=== PATIENT | male | born 1985 | race Caucasian/White ===

== ENCOUNTER 2017-11-29 07:36 | Emergency (ER) | payer BC ==
[2017-11-29] MEDS ORDERED: Acetaminophen 325 MG Tab PO ONE (08:13)
[2017-11-29] MEDS ORDERED: Ketorolac 30 MG/ML SDV IVPUSH SCH (08:15)
[2017-11-29] MEDS ORDERED: Dextrose 5%-0.9% NaCl 1,000 ML IV SCH (08:15)
--- NOTE | 2017-11-29 08:21 | EDM.PDOC ---
ED HPI GENERAL MEDICAL PROBLEM - General Chief Complaint: Fever Stated Complaint: HEAD/NECK/BACK PAIN/LIGHT HEADED Time Seen by Provider: 11/29/17 08:09 Source of Information: Reports: Patient History Limitations: Reports: No Limitations - History of Present Illness INITIAL COMMENTS - FREE TEXT/NARRATIVE: 32 year old male presents to the Ed with acute onset of fever and chills with associated daiphoresis during the night. Complains of pain in the large muscls of his neck and lower back and thighs. Associated headache. Mild non productive cough. Feels dizzy and weak. Leaned over this am and fell forwards onto the floor. No one welse is ill at home. 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 Onset: Sudden Onset Date: 11/28/17 (started last night. ) Duration: Hour(s): Location: Reports: Head, Neck, Back, Lower Extremity, Left, Lower Extremity, Right Quality: Reports: Ache, Pressure Severity: Moderate Improves with: Reports: None Worsens with: Reports: None Context: Reports: Other (acute onset of fever and chills with diaphoresis thsi am. ). Denies: Activity, Exercise, Sick Contact, Trauma Treatments HEPATOLOGIST: Reports: Acetaminophen Neck Pain Score (Numeric/FACES): 7 Head Pain Score (Numeric/FACES): 7 Back Pain Score (Numeric/FACES): 4 - Related Data Allergies Allergy/AdvReac Type Severity Reaction Status Date / Time bee pollen Allergy Swelling Verified 11/29/17 07:58 epoxy resin Allergy Hives Verified 11/29/17 07:58 Home Meds: Home Meds Oseltamivir [Tamiflu] 75 mg PO BID #10 cap 11/29/17 [Rx] Past Medical History HEENT History: Reports: Impaired Vision Other HEENT History: wears contacts. Respiratory History: Reports: Pneumonia, Recurrent Gastrointestinal History: Reports: PUD Musculoskeletal History: Reports: Fracture Social & Family History - Tobacco Use Smoking Status *Q: Current Some Day Smoker Years of Tobacco use: 16 Packs/Tins Daily: 0.2 Second Hand Smoke Exposure: No - Caffeine Use Caffeine Use: Reports: Coffee - Alcohol Use Days Per Week of Alcohol Use: 3 Number of Drinks Per Day: 3 Total Drinks Per Week: 9 - Recreational Drug Use Recreational Drug Use: No - Living Situation & Occupation Living situation: Reports: Occupation: Employed ED ROS GENERAL - Review of Systems Review Of Systems: See Below Constitutional: Reports: Fever, Chills, Malaise, Weakness, Fatigue, Decreased Appetite HEENT: Reports: Other (mild nasal congestion. ) Respiratory: Reports: Cough ( non productive. ) Cardiovascular: Reports: No Symptoms Endocrine: Reports: Fatigue GI/Abdominal: Reports: Decreased Appetite : Reports: No Symptoms Musculoskeletal: Reports: Neck Pain, Shoulder Pain, Back Pain, Leg Pain ( both thighs ) Skin: Reports: No Symptoms Neurological: Reports: Dizziness, Difficulty Walking ( due to weakness. ) Psychiatric: Reports: No Symptoms Hematologic/Lymphatic: Reports: No Symptoms Immunologic: Reports: No Symptoms ED EXAM, UPPER BACK/NECK PAIN - Physical Exam Exam: See Below Exam Limited By: No Limitations General Appearance: Alert, WD/WN, Mild Distress, Other ( feels warm to palpation. ) Ears Exam: Normal External Exam, Normal TMs Throat/Mouth Exam: Other (oropharynx is inflamed from cigarette smoking. ) Head Exam: Atraumatic, Normocephalic, Other Neck Exam: Other (tender ) Nexus Criteria: Posterior, Midline Cervical Tenderness, Evidence of Intoxication , Altered Level of Consciousness, Focal Neurological Deficit, Painful Distraction Injuries GI/Abdominal: Normal Bowel Sounds, Soft, Non-Tender, No Organomegaly, No Distention, No Abnormal Bruit, No Mass, Pelvis Stable (Male) Exam: No Hernia Back Exam: Normal Inspection, Decreased Range of Motion, Other (muscles are generally sore to touch. ). No: Muscle Spasm Extremities: Normal Inspection, Normal Range of Motion, Non-Tender, No Pedal Edema Neurologic: No Motor/Sensory Deficits, Normal Mood/Affect, Oriented x 3 Course - Vital Signs Last Recorded V/S: Last Vital Signs Temp 37.3 C 11/29/17 08:51 Pulse 81 11/29/17 07:40 Resp 20 11/29/17 07:40 BP 131/81 11/29/17 07:40 Pulse Ox 96 11/29/17 07:40 - Orders/Labs/Meds Orders: Active Orders 24 hr Category Date Time Status CBC WITH MANUAL DIFF [HEME] Stat Lab 11/29/17 08:42 Results COMPREHENSIVE METABOLIC PN,CMP [CHEM] Stat Lab 11/29/17 08:42 Received CRP [C-REACTIVE PROTEIN] [CHEM] Stat Lab 05/07/18 08:42 Received INFLUENZA A+B AG SCREEN [RM] Stat Lab 11/29/17 08:02 Ordered Dextrose 5%-0.9% NaCl [Dextrose 5%-Normal Saline] 1,000 Med 11/29/17 08:15 Active ml IV ASDIRECTED Ketorolac [Toradol] Med 11/29/17 08:15 Active 30 mg IVPUSH ONETIME Medication Orders Dextrose/Sodium Chloride (Dextrose 5%-Normal Saline) 1,000 mls @ 999 mls/hr IV ASDIRECTED AUDREY Last Admin: 11/29/17 08:51 Dose: 999 mls/hr Ketorolac Tromethamine (Toradol) 30 mg IVPUSH ONETIME AUDREY Last Admin: 11/29/17 08:51 Dose: 30 mg Labs: Laboratory Tests 11/29/17 Range/Units 08:42 WBC 4.66 (4.23-9.07) K/mm3 RBC 5.40 (4.63-6.08) M/mm3 Hgb 15.0 (13.7-17.5) gm/L Hct 44.7 (40.1-51.0) % MCV 82.8 (79.0-92.2) fl MCH 27.8 (25.7-32.2) pg MCHC 33.6 (32.2-35.5) g/dl RDW Std Deviation 40.4 (35.1-43.9) fL Plt Count 189 (163-337) K/mm3 MPV 10.4 (9.4-12.3) fl Meds: Medications Generic Name Dose Route Start Last Admin Trade Name Freq PRN Reason Stop Dose Admin Dextrose/Sodium Chloride 1,000 mls @ 999 mls/hr 11/29/17 08:15 11/29/17 08:51 Dextrose 5%-Normal Saline IV 999 mls/hr ASDIRECTED AUDREY Administration Ketorolac Tromethamine 30 mg 11/29/17 08:15 11/29/17 08:51 Toradol IVPUSH 30 mg ONETIME AUDREY Administration Discontinued Medications Generic Name Dose Route Start Last Admin Trade Name Freq PRN Reason Stop Dose Admin Acetaminophen 975 mg 11/29/17 08:13 11/29/17 08:51 Tylenol PO 11/29/17 08:14 975 mg NOW ONE Administration - Radiology Interpretation Free Text/Narrative:: 32 year old male presents to ED with sudden osnet of fever and chills with diaphoresis. headache and diffuse large muscle myalgia. Mild non productive cough. Lungs are clear. Mild nasal congestion. Plan ;CXR. Labs and influenza screen. IV D5 NS at open. Toradol 30mg iV. Tylenol 975mg po. - Re-Assessments/Exams Free Text/Narrative Re-Assessment/Exam: 11/29/17 08:45: CXR is normal. Departure - Departure Time of Disposition: 09:04 Disposition: Home, Self-Care 01 Condition: Fair Clinical Impression: Influenza due to influenza virus, type B - Discharge Information Prescriptions: Oseltamivir [Tamiflu] 75 mg PO BID #10 cap Instructions: Influenza, Adult, [id number] Referrals: Krystle Miranda PA [Primary Care Provider] - Forms: ED Department Discharge, ED Department Discharge, ED Return to Work/ School Form Additional Instructions: Evaluation in the ER today due to sudden onset of high fever and generalized body aches and headache with non productive cough. All signs and symptoms of Influenza. Influenza screen was positive fro type B virus. Treatment is to continue Ibuprofen( Advil) 600mg by mouth every 6hrs for fever and body ache and headache relief. Plenty of fluids and diet as tolerated. Take anti viral medication Tamiflu 75mg by mouth twice daily for the next 5 days . You will start to feel improved in 48hrs time. Suggest off work the rest of this week due to being contagious to others. - My Orders Last 24 Hours: My Active Orders 11/29/17 08:02 INFLUENZA A+B AG SCREEN [RM] Stat 11/29/17 08:15 Dextrose 5%-0.9% NaCl [Dextrose 5%-Normal Saline] 1,000 ml IV ASDIRECTED Ketorolac [Toradol] 30 mg IVPUSH ONETIME 11/29/17 08:42 CBC WITH MANUAL DIFF [HEME] Stat COMPREHENSIVE METABOLIC PN,CMP [CHEM] Stat CRP [C-REACTIVE PROTEIN] [CHEM] Stat - Assessment/Plan Last 24 Hours: My Active Orders 11/29/17 08:02 INFLUENZA A+B AG SCREEN [RM] Stat 11/29/17 08:15 Dextrose 5%-0.9% NaCl [Dextrose 5%-Normal Saline] 1,000 ml IV ASDIRECTED Ketorolac [Toradol] 30 mg IVPUSH ONETIME 11/29/17 08:42 CBC WITH MANUAL DIFF [HEME] Stat COMPREHENSIVE METABOLIC PN,CMP [CHEM] Stat CRP [C-REACTIVE PROTEIN] [CHEM] Stat
--- NOTE | 2017-11-29 08:55 | CR ---
Chest: Frontal view of the chest was obtained. Comparison: No prior chest x-ray. Heart size and mediastinum are normal. Lungs are clear. Slight scoliosis is present within the spine. Impression: 1. Nothing acute is seen on frontal chest x-ray. Diagnostic code #1
== END 2017-11-29 09:34 | disposition home or self-care (01) ==
LOC: JD.ED 07:36
DX: J10.1 Influenza due to other identified influenza virus with other respiratory manifestations (principal); F17.210 Nicotine dependence, cigarettes, uncomplicated; Z91.030 Bee allergy status; Z87.01 Personal history of pneumonia (recurrent)
CPT/HCPCS: 36415; 71045; 80053; 85025; 86140; 87804; 96361; 96374; 99284; A9270; J1885; J7042

== ENCOUNTER 2018-02-08 14:57 | Emergency (ER) | payer OTHER, BC ==
[2018-02-08] MEDS ORDERED: Diphtheria,Pertussis(Acell),Tetanus Vaccine 0.5 ML SDV IM ONE (15:23)
[2018-02-08] MEDS ORDERED: Lidocaine 1% 10 ML MDV INJECT ONE (15:49)
--- NOTE | 2018-02-08 16:21 | EDM.PDOC ---
<Juliane Mendoza - Last Filed: 02/08/18 16:55> ED HPI GENERAL MEDICAL PROBLEM - General Chief Complaint: Upper Extremity Injury/Pain Stated Complaint: RIGHT FINGER LAC Time Seen by Provider: 02/08/18 15:03 - Related Data Allergies Allergy/AdvReac Type Severity Reaction Status Date / Time bee pollen Allergy Swelling Verified 11/29/17 07:58 epoxy resin Allergy Hives Verified 11/29/17 07:58 Home Meds: Home Meds . [No Known Home Meds] 02/08/18 [History] Course - Vital Signs Last Recorded V/S: Last Vital Signs Temp 98.2 F 02/08/18 15:04 Pulse 73 02/08/18 15:04 Resp 15 02/08/18 15:04 BP 136/86 02/08/18 15:04 Pulse Ox 98 02/08/18 15:04 - Orders/Labs/Meds Orders: Active Orders 24 hr Category Date Time Status Vaccines to be Administered [RC] PER UNIT ROUTINE Care 02/08/18 15:23 Active Fingers Second Digit Rt F6 [CR] Stat Exams 02/08/18 15:23 Taken Meds: Medications Discontinued Medications Generic Name Dose Route Start Last Admin Trade Name Freq PRN Reason Stop Dose Admin Diphtheria/Tetanus/Acell Pertussis 0.5 ml 02/08/18 15:23 02/08/18 15:36 Adacel IM 02/08/18 15:24 0.5 ml .ONCE ONE Administration Lidocaine HCl 10 ml 02/08/18 15:49 02/08/18 16:54 Xylocaine 1% INJECT 02/08/18 15:50 10 ml ONETIME ONE Administration Departure - Departure Time of Disposition: 16:55 Disposition: Home, Self-Care 01 Condition: Good Clinical Impression: Finger laceration Qualifiers: Encounter type: initial encounter Finger: index finger Damage to nail status: without damage Foreign body presence: without foreign body Laterality: right Qualified Code(s): S61.210A - Laceration without foreign body of right index finger without damage to nail, initial encounter - Discharge Information *PRESCRIPTION DRUG MONITORING PROGRAM REVIEWED*: Not Applicable *COPY OF PRESCRIPTION DRUG MONITORING REPORT IN PATIENT YFN: Not Applicable Instructions: Laceration Care, Adult, [id number] Referrals: Krystle Miranda PA [Primary Care Provider] - Forms: ED Department Discharge Additional Instructions: Please wash your finger with gentle soapy water twice a day. Do not soak the finger in dirty water for at least 10 days. If you are going to be working with your hands put a bandage over your lacerations and then wear gloves. Cover your sutures with an antibiotic ointment and a bandage. Do not put the ointment over the adhesive, this will cause the adhesive to break down prematurely. Please return to the ED if you see any signs of infection such as cloudy, bad smelling drainage from the injury, increasing swelling or redness. The sutures should be removed in 7 days, you can come back to the ED to have them removed or you can make an appointment to have the sutures removed at the [facility], . - My Orders Last 24 Hours: My Active Orders 02/08/18 15:23 Vaccines to be Administered [RC] PER UNIT ROUTINE Fingers Second Digit Rt F6 [CR] Stat - Assessment/Plan Last 24 Hours: My Active Orders 02/08/18 15:23 Vaccines to be Administered [RC] PER UNIT ROUTINE Fingers Second Digit Rt F6 [CR] Stat <Thien Mora - Last Filed: 02/08/18 17:08> ED HPI GENERAL MEDICAL PROBLEM - General Source of Information: Reports: Patient History Limitations: Reports: No Limitations - History of Present Illness INITIAL COMMENTS - FREE TEXT/NARRATIVE: The patient presents with a right pointer finger injury. He was working with some machinery and got it between some gears and had his finger crushed. He is right handed and his tetanus is not up to date. He has no other injuries. Onset: Sudden Duration: Minutes: Location: Reports: Upper Extremity, Right (Index finger) Quality: Reports: Sharp Severity: Moderate Improves with: Reports: Immobilization Worsens with: Reports: Movement Associated Symptoms: Reports: No Other Symptoms Right Hand Pain Score (Numeric/FACES): 5 Past Medical History - Past Health History Medical/Surgical History: Denies Medical/Surgical History HEENT History: Reports: Impaired Vision Other HEENT History: wears contacts. Respiratory History: Reports: Pneumonia, Recurrent Gastrointestinal History: Reports: PUD Musculoskeletal History: Reports: Fracture Social & Family History - Tobacco Use Smoking Status *Q: Current Every Day Smoker Years of Tobacco use: 12 Packs/Tins Daily: 0.3 - Caffeine Use Caffeine Use: Reports: Coffee - Living Situation & Occupation Living situation: Reports: Occupation: Employed Review of Systems - Review of Systems Review Of Systems: See Below Constitutional: Reports: No Symptoms Eyes: Reports: No Symptoms Ears: Reports: No Symptoms Nose: Reports: No Symptoms Mouth/Throat: Reports: No Symptoms Respiratory: Reports: No Symptoms Cardiovascular: Reports: No Symptoms GI/Abdominal: Reports: No Symptoms Genitourinary: Reports: No Symptoms Musculoskeletal: Reports: Other (Right index finger injury) Skin: Reports: No Symptoms ED EXAM, GENERAL - Physical Exam Exam: See Below Exam Limited By: No Limitations General Appearance: Alert, No Apparent Distress Ears: Normal External Exam Nose: Normal Inspection Head: Atraumatic, Normocephalic Neck: Normal Inspection Respiratory/Chest: No Respiratory Distress Extremities: Other (Two 1cm laceration to his right index finger with good sensation and capillary refill) Neurological: Alert, Oriented, No Motor/Sensory Deficits ED TRAUMA EXTREMITY PROCEDURES - Laceration/Wound Repair Right Digit - 2nd (Index) Lac/Wound Length In cm: 1 Appearance: Subcutaneous, Linear Distal NVT: Neuro & Vascular Intact, No Tendon Injury Anesthetic Type: Local Local Anesthesia - Lidocaine (Xylocaine): 1% Plain Local Anesthetic Volume: 2cc Skin Prep: Saline Exploration/Debridement/Repair: Wound Explored, In a Bloodless Field, Explored to Base Closed With: Sutures Suture Size: 4-0 # of Sutures: 4 Suture Type: Nylon, Interrupted, Simple Tetanus Status Addressed: Yes Complications: No Progress/Comments: The other laceration on his finger was more superficial. It as also 1cm long. There was no tendon injury. He was neurovascularly intact. Adhesive was applied to the wound with no complications. Course - Re-Assessments/Exams Free Text/Narrative Re-Assessment/Exam: 02/08/18 16:30 I ordered an x-ray of his finger and there was no rachael problems. I will have my PA student Juliane help suture his finger. Departure - Departure Condition: Good
--- NOTE | 2018-02-09 10:15 | CR ---
Right second finger: Four views of the right second finger were obtained. Comparison: No previous study. Joint spaces are preserved. No fracture, dislocation or other bony abnormality is seen. Impression: 1. No abnormality is seen on right second finger exam. Diagnostic code #1
== END 2018-02-08 17:15 | disposition home or self-care (01) ==
LOC: JD.ED 14:57
DX: S61.210A Laceration without foreign body of right index finger without damage to nail, initial encounter (principal); F17.210 Nicotine dependence, cigarettes, uncomplicated; Z23 Encounter for immunization; W23.0XXA Caught, crushed, jammed, or pinched between moving objects, initial encounter
CPT/HCPCS: 12001; 73140-26-F6; 73140-F6; 90471; 90715; 99282-25; 99283-25